=== PATIENT | male | born 1960 | race Caucasian/White ===

== ENCOUNTER 2018-11-08 09:35 | Day surgery (SDC) | payer BC, MEDICARE ==
[2018-11-08 10:30] LABS: Hematocrit 30.5 % (42-50); Mean Corpuscular Hemoglobin 33.4 pg (26-32); Mean Corpuscular Hgb Concent. 32.8 g/dl (32-36); Mean Platelet Volume 10.6 fl (6-9.5); Platelet Count 61 K/mm3 (150-450); Red Blood Count 2.99 M/mm3 (4.1-5.6); Red Cell Distribution Width 17.5 % (11.5-14.0); White Blood Count 4.2 K/mm3 (4.0-10.5)
[2018-11-08 10:35] LABS: INR 2.12 (0.8-3.0); PROTIME 24.8 SECONDS (8.83-12.87)
[2018-11-08] MEDS ORDERED: Sodium Chloride 0.9% 1000 ML 1,000 ML IV SCH (11:00)
[2018-11-08] MEDS ORDERED: Sodium Chloride 0.9% 1000 ML 1,000 ML ONE (11:01)
[2018-11-08 11:30] VITALS: BP 117/61; PULSE 95; O2SAT 99
[2018-11-08 11:32] LABS: Slide Review YES
[2018-11-08 11:57] LABS: ABO TYPING O; Antibody Screen NEGATIVE (NEGATIVE); RH TYPING POSITIVE
== END 2018-11-08 12:55 | disposition home or self-care (01) ==
LOC: SDC 09:35
PROVIDERS: ATTEND Surgery
DX: Z53.09 Procedure and treatment not carried out because of other contraindication (principal)
CPT/HCPCS: 36415; 85027; 85610; 86850; 86900; 86901; P9017

== ENCOUNTER 2021-05-15 10:26 | Day surgery (SDC) | payer OTHER, MEDICARE ==
[2021-05-15] MEDS ORDERED: SYNVISC 16 MG/2 ML SYRINGE IU ONE (10:27)
[2021-05-15] MEDS ORDERED: Xylocaine 1% Vial 30 ML PF IJ ONE (10:27)
[2021-05-15] MEDS ORDERED: BENADRYL 25 MG CAPSULE ONE (10:58)
--- NOTE | 2021-05-15 13:52 | XRAY ---
8 seconds fluoroscopy time in surgery for intra-articular injection of the left hip.
--- NOTE | 2021-05-15 13:52 | XRAY ---
8 seconds fluoroscopy time in surgery for intra-articular injection of the right hip.
--- NOTE | 2021-05-15 13:54 | XRAY ---
Indication: Right knee injection. Intraoperative fluoroscopy provided for 8 seconds. Single digital spot image submitted for interpretation demonstrate needle tip projecting over the right femur intercondylar notch. Small amount of contrast injected for needle tip placement. Correlate with intraoperative findings/report.
--- NOTE | 2021-05-15 13:54 | XRAY ---
Indication: Left knee injection. Intraoperative fluoroscopy provided for 8 seconds. Single digital spot image submitted for interpretation demonstrate needle tip projecting over the left femur intercondylar notch. Small amount of contrast injected for needle tip placement. Correlate with intraoperative findings/report.
== END 2021-05-15 12:54 | disposition home or self-care (01) ==
LOC: SDC-PAIN 10:26
PROVIDERS: ATTEND Psychiatry & Neurology Pain Medicine
DX: M17.0 Bilateral primary osteoarthritis of knee (principal); E11.9 Type 2 diabetes mellitus without complications; Z79.899 Other long term (current) drug therapy
CPT/HCPCS: 20610; 73560; 77002; 82947; J2001; J7325; Q9966; A9270-GY

== ENCOUNTER 2021-05-22 16:06 | Day surgery (SDC) | payer OTHER, MEDICARE ==
[2021-05-22] MEDS ORDERED: SYNVISC 16 MG/2 ML SYRINGE IU ONE (16:07)
[2021-05-22] MEDS ORDERED: Xylocaine 1% Vial 30 ML PF IJ ONE (16:07)
[2021-05-22] MEDS ORDERED: BENADRYL 25 MG CAPSULE ONE (18:01)
--- NOTE | 2021-05-22 20:40 | XRAY ---
Indication: Left knee injection. Intraoperative fluoroscopy provided for 5 seconds. Single digital spot image submitted for interpretation demonstrates needle tip projecting over the left femur intercondylar notch. Small amount of contrast injected for needle tip placement. Correlate with intraoperative findings/report.
--- NOTE | 2021-05-22 20:42 | XRAY ---
Indication: Right knee injection. Intraoperative fluoroscopy provided for 9 seconds. Single digital spot image submitted for interpretation demonstrates needle tip projecting over the right femur intercondylar notch. Small amount of contrast injected for needle tip placement. Correlate with intraoperative findings/report.
--- NOTE | 2021-05-23 11:45 | XRAY ---
9 seconds of fluoroscopy was used in surgery for a right knee intra-articular injection.
--- NOTE | 2021-05-23 14:59 | XRAY ---
5 seconds of fluoroscopy was used in surgery for a left knee intra-articular injection.
== END 2021-05-22 19:05 | disposition home or self-care (01) ==
LOC: SDC-PAIN 16:06
PROVIDERS: ATTEND Psychiatry & Neurology Pain Medicine
DX: M17.0 Bilateral primary osteoarthritis of knee (principal); E11.9 Type 2 diabetes mellitus without complications; Z79.899 Other long term (current) drug therapy
CPT/HCPCS: 20610; 73560; 77002; 82947; J2001; J7325; Q9966; A9270-GY

== ENCOUNTER 2021-05-29 16:08 | Day surgery (SDC) | payer OTHER, MEDICARE ==
[2021-05-29] MEDS ORDERED: Xylocaine 1% Vial 30 ML PF IJ ONE (16:09)
[2021-05-29] MEDS ORDERED: SYNVISC 16 MG/2 ML SYRINGE IU ONE (16:09)
[2021-05-29] MEDS ORDERED: BENADRYL 25 MG CAPSULE ONE (16:41)
--- NOTE | 2021-05-30 07:24 | XRAY ---
Indication: Left knee injection. Intraoperative fluoroscopy provided for 8 seconds. Single digital spot image submitted for interpretation demonstrates needle tip projecting left femur intercondylar notch. Small amount of contrast injected for needle tip placement. Correlate with intraoperative findings/report.
--- NOTE | 2021-05-30 07:34 | XRAY ---
Indication: Right knee injection. Intraoperative fluoroscopy provided for 10 seconds. Single digital spot image submitted for interpretation demonstrates needle tip projecting right femur intercondylar notch. Small amount of contrast injected for needle tip placement. Correlate with intraoperative findings/report.
--- NOTE | 2021-05-30 09:07 | XRAY ---
10 seconds fluoroscopy time in surgery for intra-articular injection of the right knee.
--- NOTE | 2021-05-30 09:07 | XRAY ---
8 seconds fluoroscopy time in surgery for intra-articular injection of the left knee.
== END 2021-05-29 19:20 | disposition home or self-care (01) ==
LOC: SDC-PAIN 16:08
PROVIDERS: ATTEND Psychiatry & Neurology Pain Medicine
DX: M17.0 Bilateral primary osteoarthritis of knee (principal); J45.909 Unspecified asthma, uncomplicated; G47.30 Sleep apnea, unspecified; E11.9 Type 2 diabetes mellitus without complications; I10 Essential (primary) hypertension; Z79.899 Other long term (current) drug therapy
CPT/HCPCS: 20610; 73560; 77002; 82947; J2001; J7325; Q9966; A9270-GY